=== PATIENT | male | born 1985 | race African-American/Black ===

== ENCOUNTER 2022-11-27 20:42 | Emergency (ER) | payer MEDICAID ==
[~2022-11-27] VITALS: Ht 190.5 cm; Wt 89.0 kg
[2022-11-27] MEDS ORDERED: HALOPERIDOL LACTATE 5MG/ML VIAL IM ONE (23:00)
[2022-11-27] MEDS ORDERED: LORAZEPAM 2MG/ML CPJ IM ONE (23:00)
[2022-11-27 23:35] LABS: CHLORIDE 101 mEq/L (98-107)
[2022-11-27 23:42] LABS: BASOPHILS % 0.5 % (0.0-2.0); EOSINOPHILS % 0.3 % (0.0-5.0); HEMATOCRIT. 36.4 % (42.0-52.0); HEMOGLOBIN. 11.8 g/dL (14.0-18.0); LYMPHOCYTES % 17.9 % (20.0-50.0); MEAN CORPUSCULAR HEMOGLOBIN 26.5 pg (28.0-32.0); MEAN CORPUSCULAR VOLUME 81.5 fL (80.0-94.0); MEAN PLATELET VOLUME 8.4 fl (7.4-10.4); MONOCYTES % 6.7 % (2.0-8.0); NEUTROPHILS % 74.6 % (40.0-76.0); PLATELET 333 x1000/uL (130-400); RED BLOOD CELL COUNT 4.46 mill/uL (4.7-6.1)
[2022-11-27 23:45] LABS: ETHANOL BLOOD < 10 mg/dL
[2022-11-28 01:10] VITALS: BP 128/75
== END 2022-11-28 01:12 | disposition home or self-care (01) ==
LOC: ER 21:03
DX: R44.0 Auditory hallucinations (principal); F19.10 Other psychoactive substance abuse, uncomplicated
CPT/HCPCS: 36415; 80053; 80307; 80320; 80329; 85025; 99283; G0480

== ENCOUNTER 2022-11-28 04:15 | Emergency (ER) | payer MEDICAID ==
[2022-11-28] MEDS ORDERED: HALOPERIDOL LACTATE 5MG/ML VIAL IM ONE (04:54)
[2022-11-28] MEDS ORDERED: LORAZEPAM 2MG/ML CPJ ONE (04:55)
[2022-11-28] MEDS ORDERED: DIPHENHYDRAMINE 50MG/ML VIAL ONE (04:55)
[2022-11-28 05:43] LABS: BASOPHILS % 0.2 % (0.0-2.0); EOSINOPHILS % 0.1 % (0.0-5.0); HEMATOCRIT. 37.7 % (42.0-52.0); LYMPHOCYTES % 7.3 % (20.0-50.0); MEAN CORPUSCULAR HEMOGLOBIN 25.9 pg (28.0-32.0); MEAN CORPUSCULAR VOLUME 81.6 fL (80.0-94.0); MEAN PLATELET VOLUME 8.9 fl (7.4-10.4); MONOCYTES % 5.1 % (2.0-8.0); NEUTROPHILS % 87.3 % (40.0-76.0); PLATELET 351 x1000/uL (130-400); RED BLOOD CELL COUNT 4.63 mill/uL (4.7-6.1); RED CELL DISTRIBUTION WIDTH 13.7 % (11.6-14.6)
[2022-11-28 06:00] LABS: CHLORIDE 99 mEq/L (98-107)
[2022-11-28 06:03] LABS: CLARITY URINE CLEAR (CLEAR); COLOR URINE YELLOW (YELLOW); KETONES URINE 3+ (NEGATIVE); LEUKOCYTE ESTERASE URINE NEGATIVE (NEGATIVE); NITRITE URINE NEGATIVE (NEGATIVE); OCCULT BLOOD URINE TRACE (NEGATIVE); PH URINE 5.5 (4.5-8.0); PROTEIN URINE 1+ (NEGATIVE); SPECIFIC GRAVITY URINE 1.029 (1.005-1.030)
[2022-11-28 06:10] LABS: ETHANOL BLOOD < 10 mg/dL
[2022-11-28 06:24] LABS: *AMPHETAMINES SCREEN URINE PRESUMTIVE POSITIVE (NEGATIVE); *BARBITURATES SCREEN URINE NEGATIVE (NEGATIVE); *BENZODIAZEPINES SCREEN URINE NEGATIVE (NEGATIVE); *COCAINE SCREEN URINE NEGATIVE (NEGATIVE); CANNABINOID URINE SCREEN PRESUMTIVE POSITIVE (NEGATIVE); METHADONE URINE SCREEN NEGATIVE (NEGATIVE); OPIATES URINE SCREEN NEGATIVE (NEGATIVE); PHENCYCLIDINE URINE SCREEN NEGATIVE (NEGATIVE)
[2022-11-28 10:28] VITALS: BP 107/64
== END 2022-11-28 10:45 | disposition home or self-care (01) ==
LOC: ER 04:15
DX: R46.2 Strange and inexplicable behavior (principal); R45.1 Restlessness and agitation; R41.82 Altered mental status, unspecified; Z20.822 Contact with and (suspected) exposure to COVID-19
CPT/HCPCS: 36415; 70450; 71045; 72170; 80053; 80305; 80307; 80320; 80329; 81003; 85025; 87426; 96372; 99291; C9803; J1200; J1630; J2060; Z7610; G0480